=== PATIENT | female | born 1980 | race Caucasian/White ===

== ENCOUNTER → 2016-04-09 | Outpatient (CLI) | payer OTHER | LOC: LAB 15:55 | PROVIDERS: ATTEND Nurse Practitioner Women's Health | DX: E66.01 Morbid (severe) obesity due to excess calories (principal); G47.00 Insomnia, unspecified; F32.9 Major depressive disorder, single episode, unspecified | CPT/HCPCS: 84481 ==

== ENCOUNTER → 2016-07-30 | Outpatient (CLI) | payer OTHER ==
[2016-07-30 17:41] LABS: HEMOGLOBIN A1C 5.23 % (4.2-6.0)
== END ==
LOC: LAB 15:45
PROVIDERS: ATTEND Nurse Practitioner Women's Health
DX: R73.02 Impaired glucose tolerance (oral) (principal)
CPT/HCPCS: 83036